=== PATIENT | female | born 1945 | race Caucasian/White ===

== ENCOUNTER → 2019-07-19 14:24 | Outpatient (CLI) | payer MEDICARE, OTHER, SELFPAY ==
--- NOTE | ~2019-07-19 | MM_ITS ---
EXAMINATION: MM screening do BI w kwabena HISTORY: Screening mammogram TECHNIQUE: Craniocaudal and mediolateral oblique 3-D tomosynthesis images were obtained and synthetic 2-D images were generated. CAD analysis was submitted and interpreted. COMPARISON: 03/17/2018, 10/30/2015 lateral digital screening mammogram examinations BREAST PARENCHYMAL COMPOSITION: There are scattered areas of fibroglandular density... FINDINGS: An approximately 6-7 mm circumscribed opacity is noted posteriorly in the mid outer right b reast. 2 similar circumscribed approximately 6-7 mm densities are noted posteriorly in the outer mid left breast. Bilateral diagnostic mammography and ultrasound are recommended. These may be intramamma ry lymph nodes but are not definitively identified on previous mammograms, possibly due to superimpos ed more prominent fibroglandular tissue in the past. Otherwise there is no evidence of suspicious mass, calcification, or architectural distortion to sugg est malignancy in either breast. There has been no other suspicious interval change. IMPRESSION: 1. Posterior mid lateral circumscribed 6 7 7 mm opacities are identified in each breast, possibly int ramammary lymph nodes. 2. Bilateral diagnostic mammography and ultrasound are recommended BI-RADS Category 0: Incomplete: Needs additional imaging evaluation. Reviewed, dictated and finalized at location A. IMPRESSION: 1. Posterior mid lateral circumscribed 6 7 7 mm opacities are identified in eac h breast, possibly intramammary lymph nodes. 2. Bilateral diagnostic mammography and ultrasound are recommended BI-RADS Category 0: Incomplete: Needs additional imaging evaluation.
--- NOTE | ~2019-07-19 | DEXA_ITS ---
Bone Density Report Name: Suzanna Jamil Age: 74 Sex: Female Ethnicity: White Date of : 1945 Indication: postmenopausal; screening for osteoporosis; height loss; Referring Provider: LUIS RODGERS Study: Bone densitometry was performed. Exam Date: July 19, 2019 Accession number: [id number] Bone Density: Region BMD T-score Z-score Classification AP Spine (L1-L4) 0.986 -0.6 1.7 Normal Femoral Neck (Left) 0.775 -0.7 1.3 Normal Total Hip (Left) 0.904 -0.3 1.4 Normal Femoral Neck (Right) 0.787 -0.6 1.4 Normal Total Hip (Right) 0.859 -0.7 1.0 Normal Total Hip Mean 0.882 -0.5 1.2 Normal World Health Organization criteria for BMD impression classify patients as: Normal (T-score at or above -1.0), Osteopenia (T-score between -1.0 and -2.5), or Osteoporosis (T-score at or below -2.5). 10-year Fracture Risk: FRAX not reported because: All T-scores for Spine Total, Hip Total, Femoral Neck at or above -1.0 Previous Exams: Region Exam Age BMD T-score BMD Change BMD Change Date g/cm2 vs Baseline vs Previous AP Spine(L1-L4) 07/19/2019 74 0.986 -0.6 -0.089* 0.018 10/30/2015 70 0.967 -0.7 -0.107* -0.064* 10/31/2011 66 1.031 -0.1 -0.044* -0.044* 10/06/2008 63 1.075 0.3 Total Hip(Left) 07/19/2019 74 0.904 -0.3 -0.062* 0.010 10/30/2015 70 0.893 -0.4 -0.073* -0.048* 10/31/2011 66 0.941 0.0 -0.025 -0.025 10/06/2008 63 0.966 0.2 Total Hip(Right) 07/19/2019 74 0.859 -0.7 -0.119* -0.039* 10/30/2015 70 0.898 -0.4 -0.080* -0.050* 10/31/2011 66 0.948 0.0 -0.030* -0.030* 10/06/2008 63 0.978 0.3 *Denotes significance at 95% confidence level, LSC for AP Spine = 0.022 g/cm2, LSC for Total Hip = 0.027 g/cm2 Clinical Information Provided by Patient: Has used the following medications: Vitamin D, MTV, off and on calcium Patient maximum height was 64.5 Menopause Age: 51 No regular weight bearing exercise Drinks caffeinated beverages Onset of menses at age 19 Number of children 1 Impression: The patient has normal bone mass. The BMD for the Total Hip(Right) decreased, changing by -0.039 since the last DXA exam. Discussion: BONE DENSITY IS ABOVE THE MINIMUM DESIRABLE LEVEL AT ALL SKELETAL SITES TESTED. This patient?s bone mineral density is above the
== END ==
PROVIDERS: Visit Provider Obstetrics & Gynecology Gynecology
DX: Z12.31 Encounter for screening mammogram for malignant neoplasm of breast (principal); Z78.0 Asymptomatic menopausal state; R92.8 Other abnormal and inconclusive findings on diagnostic imaging of breast
CPT/HCPCS: 77063; 77067; 77080

== ENCOUNTER → 2020-09-13 10:16 | Outpatient (CLI) | payer MEDICARE, OTHER, SELFPAY ==
--- NOTE | ~2020-09-13 | MM_ITS ---
EXAMINATION: MM screening [facility] BI w kwabena HISTORY: Screening TECHNIQUE: Craniocaudal and mediolateral oblique 3-D tomosynthesis images were obtained and synthetic 2-D images were generated. CAD analysis was submitted and interpreted. COMPARISON: Comparison to multiple prior studies sequentially, with oldest reviewed study dated 11/2013. BREAST PARENCHYMAL COMPOSITION: There are scattered areas of fibroglandular density. FINDINGS: There is no evidence of suspicious mass, calcification, or architectural distortion to sugg est malignancy in either breast. There has been no suspicious interval change. IMPRESSION: 1. No mammographic evidence of malignancy. 2. Recommend routine screening mammography in one year. BI-RADS Category 1: Negative Reviewed, dictated and finalized at location A.
== END ==
PROVIDERS: Visit Provider Obstetrics & Gynecology Gynecology
DX: Z12.31 Encounter for screening mammogram for malignant neoplasm of breast (principal)
CPT/HCPCS: 77063; 77067

== ENCOUNTER → 2021-12-02 15:04 | Outpatient (CLI) | payer MEDICARE, OTHER, SELFPAY ==
--- NOTE | ~2021-12-02 | US_ITS ---
EXAMINATION: US pelvic complete w TV DATE: 12/02/2021 15:42 INDICATION: Ovarian cyst. Comparison:Ultrasound dated 12/20/2013 TECHNIQUE: Multiple transabdominal and endovaginal sonographic images of the pelvis performed. FINDINGS: The uterus measures 5.4 x 2.8 x 3.9 cm. Uterus is retroverted. The endometrial complex mir ures 2 mm. The right ovary measures 1.6 x 1.3 x 1.4 cm and the left ovary measures 3 x 2.6 x 3.1 cm. There are m ultiple small cyst of the left ovary measuring up to 12 mm. There are small follicles in each ovary. Normal doppler signal in both ovaries. There is no free fluid in the pelvis. There are no abnormal masses seen on either side. IMPRESSION: 1. Multiple small cysts of the left ovary measuring up to 12 mm. Reviewed, dictated and finalized at location A.
== END ==
PROVIDERS: PCP Internal Medicine; Visit Provider Obstetrics & Gynecology Gynecology
DX: N83.202 Unspecified ovarian cyst, left side (principal)
CPT/HCPCS: 76830; 76856

== ENCOUNTER → 2022-01-23 10:57 | Outpatient (CLI) | payer MEDICARE, OTHER, SELFPAY ==
--- NOTE | ~2022-01-23 | MM_ITS ---
EXAMINATION: MM screening do BI w kwabena HISTORY: Screening TECHNIQUE: Craniocaudal and mediolateral oblique 3-D tomosynthesis images were obtained and synthetic 2-D images were generated. CAD analysis was submitted and interpreted. COMPARISON: Comparison to multiple prior studies sequentially, with oldest reviewed study dated 10/29. BREAST PARENCHYMAL COMPOSITION: There are scattered areas of fibroglandular density. FINDINGS: There is no evidence of suspicious mass, calcification, or architectural distortion to sugg est malignancy in either breast. There has been no suspicious interval change. IMPRESSION: 1. No mammographic evidence of malignancy. 2. Recommend routine screening mammography in one year. BI-RADS Category 1: Negative Reviewed, dictated and finalized at location A.
== END ==
PROVIDERS: PCP Internal Medicine; Visit Provider Obstetrics & Gynecology Gynecology
DX: Z12.31 Encounter for screening mammogram for malignant neoplasm of breast (principal)
CPT/HCPCS: 77063; 77067

== ENCOUNTER 2023-06-17 15:07 | Outpatient (CLI) | payer MEDICARE, OTHER, SELFPAY ==
--- NOTE | ~2023-06-17 | XR_ITS ---
EXAMINATION: XR chest 2V DATE: 06/17/2023 15:33 INDICATION: Acute upper respiratory infection, unspecified. TECHNIQUE: Frontal and lateral views of the chest were obtained. COMPARISON: None. FINDINGS: Calcified right lung nodules are consistent with old granulomatous disease. No pleural effu arleth or pneumothorax. The heart size is normal. IMPRESSION: 1. No acute cardiopulmonary disease. Reviewed, dictated and finalized at location E. 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
== END 2023-06-17 15:08 ==
DX: J06.9 Acute upper respiratory infection, unspecified (principal)
CPT/HCPCS: 71046

== ENCOUNTER 2023-12-02 16:03 | Outpatient (CLI) | payer MEDICARE, OTHER, SELFPAY ==
--- NOTE | ~2023-12-02 | MM_ITS ---
EXAMINATION: MM screening do BI w kwabena HISTORY: Screening TECHNIQUE: Craniocaudal and mediolateral oblique 3-D tomosynthesis images were obtained and synthetic 2-D images were generated. CAD analysis was submitted and interpreted. COMPARISON: Comparison to multiple prior studies sequentially, with oldest reviewed study dated 10/29. BREAST PARENCHYMAL COMPOSITION: Not dense: There are scattered areas of fibroglandular density. FINDINGS: There is a focal asymmetry centrally in the right breast on CC view which is high density. The left breast is stable without evidence for malignancy. IMPRESSION: 1. New focal right breast asymmetry on CC view located centrally in the middle third. 2. Additional mammographic views and possible breast ultrasound are recommended. BI-RADS Category 0: Incomplete: Needs additional imaging evaluation. Reviewed, dictated and finalized at location B. IMPRESSION: 1. New focal right breast asymmetry on CC view located centrally in the middle third. 2. Additional mammographic views and possible breast ultrasound are recommended . BI-RADS Category 0: Incomplete: Needs additional imaging evaluation.
== END 2023-12-02 16:04 ==
LOC: MICIMG 16:05
PROVIDERS: PCP Internal Medicine; Visit Provider Nurse Practitioner
DX: Z12.31 Encounter for screening mammogram for malignant neoplasm of breast (principal); R92.8 Other abnormal and inconclusive findings on diagnostic imaging of breast
CPT/HCPCS: 77063; 77067

== ENCOUNTER 2023-12-07 08:15 | Outpatient (CLI) | payer MEDICARE, OTHER, SELFPAY ==
--- NOTE | ~2023-12-07 | DEXA_ITS ---
Bone Density Report Name: YOUNG MYERS Age: 78 Sex: Female Ethnicity: White Date of : 1945 Indication: postmenopausal; screening for osteoporosis; Referring Provider: JAIDA, JAC Study: Bone densitometry was performed. Exam Date: December 07, 2023 Accession number: [id number] Bone Density: Region BMD T-score Z-score Classification AP Spine(L1-L4) 1.014 -0.3 2.2 Normal Femoral Neck (Left) 0.666 -1.6 0.5 Osteopenia Total Hip (Left) 0.803 -1.1 0.8 Osteopenia Femoral Neck (Right) 0.696 -1.4 0.8 Osteopenia Total Hip (Right) 0.815 -1.0 0.9 Normal Total Hip Mean 0.809 -1.1 0.9 Osteopenia World Health Organization criteria for BMD impression classify patients as: Normal (T-score at or above -1.0), Osteopenia (T-score between -1.0 and -2.5), or Osteoporosis (T-score at or below -2.5). 10-year Fracture Risk(1): Major Osteoporotic Fracture 13% Hip Fracture 3.0% Reported Risk Factors: [place] (), Neck BMD=0.666, BMI=26.4 (1) FRAX(R) Version 3.08. Fracture probability calculated for an untreated patient. Fracture probability may be lower if the patient has received treatment. Clinical Information Provided by Patient: Patient maximum height was 64.5 Drinks caffeinated beverages Onset of menses at age 19 Number of children 1 Impression: The patient has low bone mass, based on the Left Femoral Neck T-score. The patient has an estimated ten-year risk of hip fracture of 3% and an estimated ten-year risk of major fracture of 13%, based on the WHO FRAX algorithm. Discussion: BONE DENSITY IS LOW AT ONE OR MORE SKELETAL SITES. THE PATIENT'S BMD AND CLINICAL RISK FACTORS CONTRIBUTE TO THIS PATIENT'S INCREASED RISK OF FRACTURE. This patient's lowest T-score is low at one or more skeletal sites. It meets the World Health Organization's (WHO) criteria for ?low bone mass? (T-score between -1.0 and -2.5). The patient's 10-year risk of hip fracture as calculated by FRAX exceeds the threshold where pharmacological therapy is recommended by the National Osteoporosis Foundation (NOF). However, all treatment decisions require clinical judgment and consideration of individual patient factors, including patient preferences, comorbidities, previous drug use, risk factors not captured in the FRAX model (e.g., frailty, falls, vitamin D deficiency, increased bone turnover, interval significant decline in bone density) and possible under or overestimation of fracture risk by FRAX. The patient should follow a healthful lifestyle (good nutrition with adequate calcium and vitamin D, and appropriate weight-bearing exercise). Follow-Up: Consider a repeat BMD and Vertebral Fracture Assessment (VFA) exam in 2 years or sooner if medically necessary, to reassess this patient's status. Repo
== END 2023-12-07 08:16 | disposition home or self-care (01) ==
PROVIDERS: PCP Internal Medicine; Visit Provider Nurse Practitioner
DX: Z78.0 Asymptomatic menopausal state (principal); M85.852 Other specified disorders of bone density and structure, left thigh; M85.851 Other specified disorders of bone density and structure, right thigh
CPT/HCPCS: 77080

== ENCOUNTER 2024-01-04 08:36 | Outpatient (CLI) | payer MEDICARE, OTHER, SELFPAY ==
--- NOTE | ~2024-01-04 | MMUS_ITS ---
EXAMINATION: MM diagnostic do RT w kwabena, US breast RT complete HISTORY: Follow-up right breast asymmetry TECHNIQUE: Additional 3-D tomosynthesis images of the right breast were performed and synthetic 2-D i mages were generated. CAD analysis was submitted and interpreted. High resolution Limited right breas t ultrasound was performed. COMPARISON: Comparison to multiple prior studies sequentially, with oldest reviewed study dated 10/29. BREAST PARENCHYMAL COMPOSITION: Not dense: There are scattered areas of fibroglandular density. FINDINGS: MAMMOGRAPHIC FINDINGS: Asymmetries in the right breast are less apparent with spot compression and mediolateral views. No di screte masses or architectural distortion. ULTRASOUND: Complete US of all 4 quadrants of the right breast/s and retroareolar region was reviewed. At 12:00, 5 cm from the nipple there is an oval hypoechoic 3 mm mass with circumscribed margins, likely benign. At 3:00, 5 cm from the nipple there is an oval slightly irregular shaped hypoechoic mass with hetero geneous internal echotexture measuring 7 mm without posterior features or internal vascularity. At 8: 00, 3 cm from the nipple, there is an irregular shaped hypoechoic mass with antiparallel configuratio n. No significant posterior features or internal vascularity. This mass measures approximately 9 x 7 mm. At 9:00, 6 cm from the nipple there is an oval hypoechoic 5 mm mass with posterior enhancement, n o internal vascularity, likely benign. IMPRESSION: 1. Masses at 3:00, 5 cm from the nipple measuring 7 mm and 8:00, 3 cm from the nipple measuring up to 9 mm. Ultrasound-guided biopsies recommended. 2. Probable benign masses of the right breast at 12:00, 5 cm from the nipple measuring 3 mm and 9:00, 6 cm from the nipple measuring 5 mm. Follow-up ultrasound in 6 months recommended. BI-RADS category 4, suspicious findings. Reviewed, dictated and finalized at location B. IMPRESSION: 1. Masses at 3:00, 5 cm from the nipple measuring 7 mm and 8:00, 3 cm from the nipple measuring up to 9 mm. Ultrasound-guided biopsies recommended. 2. Probable benign masses of the right breast at 12:00, 5 cm from the nipple me asuring 3 mm and 9:00, 6 cm from the nipple measuring 5 mm. Follow-up ultrasoun d in 6 months recommended. BI-RADS category 4, suspicious findings.
== END 2024-01-04 08:37 | disposition home or self-care (01) ==
LOC: MICIMG 08:37
PROVIDERS: PCP Obstetrics & Gynecology Gynecology; Visit Provider Obstetrics & Gynecology Gynecology
DX: R92.8 Other abnormal and inconclusive findings on diagnostic imaging of breast (principal)
CPT/HCPCS: 76641; 77061; 77065; G0279

== ENCOUNTER 2024-02-04 07:44 | Outpatient (CLI) | payer MEDICARE, OTHER, SELFPAY ==
--- NOTE | ~2024-02-04 | US_ITS ---
US breast RT limited 02/04/2024 13:18 Indication: Right breast mass seen on prior examination. Procedure: Limited ultrasound of the right breast Comparison: 01/04/2024 Findings: Right breast masses are identified by ultrasound. Patient took current dose of aspirin prio r to the study. Biopsy canceled and will be rescheduled following stoppage of anticoagulant. Reviewed, dictated and finalized at location B.
== END 2024-02-04 07:45 | disposition home or self-care (01) ==
PROVIDERS: PCP Obstetrics & Gynecology Gynecology; Visit Provider Surgery
DX: R92.8 Other abnormal and inconclusive findings on diagnostic imaging of breast (principal)
CPT/HCPCS: 76642

== ENCOUNTER 2024-02-11 08:34 | Outpatient (CLI) | payer MEDICARE, OTHER, SELFPAY ==
--- NOTE | ~2024-02-11 | MMUS_ITS ---
EXAMINATION: US breast biopsy RT w image, MM post biopsy diagnostic RT, US breast bx add lesion RT DATE: 02/11/2024 10:46 INDICATION: Right breast mass at 3:00. Right breast mass at 8:00. TECHNIQUE: The procedure including the risks, benefits, and alternatives was discussed with the patie nt. Risks discussed included bleeding and infection. The patient understood the risks and agreed to p roceed. The skin of the right breast was prepped and draped in usual sterile fashion at the 8:00 posi tion. Anesthetic was administered with 1% lidocaine at the skin and 1% lidocaine with epinephrine in the deeper tissue. A 10-gauge vacuum-assisted core biopsy needle was then used to obtain 3 core bio psy specimens under continuous sonographic guidance. A Mammotome Hydromark butterfly marker was place d under sonographic guidance The entry site was cleaned and dressed. There were no immediate complic ations. The skin of the right breast was prepped and draped in usual sterile fashion at the 3:00 position. A nesthetic was administered with 1% lidocaine at the skin and 1% lidocaine with epinephrine in the aleisha per tissue. A 10-gauge vacuum-assisted core biopsy needle was then used to obtain 3 core biopsy spec imens under continuous sonographic guidance. A Mammotome Hydromark open coil marker was placed under sonographic guidance The entry site was cleaned and dressed. A two-view mammogram was obtained to document marker placement. FINDINGS: Ultrasound images demonstrate the needle in the mass at the 8:00 position. Ultrasound image s demonstrate the needle in the mass at the 3:00 position. Breast composition: There are scattered areas of fibroglandular density. Mammogram: Biopsy changes and a tissue marker are noted at the 8:00 position. Biopsy changes and a ti ssue marker are noted at the 3:00 position. IMPRESSION: 1. Successful ultrasound-guided vacuum-assisted biopsy of two right breast masses with post procedure mammogram for marker placement. Reviewed, dictated and finalized at location B. IMPRESSION: 1. Successful ultrasound-guided vacuum-assisted biopsy of two right breast mass es with post procedure mammogram for marker placement. IMPRESSION: 1. Successful ultrasound-guided vacuum-assisted biopsy of two right breast mass es with post procedure mammogram for marker placement.
== END 2024-02-11 08:35 | disposition home or self-care (01) ==
PROVIDERS: PCP Obstetrics & Gynecology Gynecology; Visit Provider Physician Assistant Surgical
DX: N63.15 Unspecified lump in the right breast, overlapping quadrants (principal)
CPT/HCPCS: 19083; 19084; 77065; 88305; A4648

== ENCOUNTER 2024-08-03 12:59 | Outpatient (CLI) | payer MEDICARE, OTHER, SELFPAY ==
--- NOTE | ~2024-08-03 | MM_ITS ---
EXAMINATION: MM diagnostic do RT w kwabena HISTORY: Follow-up benign right breast biopsies TECHNIQUE: Additional 3-D tomosynthesis images of the right breast were performed and synthetic 2-D i mages were generated. CAD analysis was submitted and interpreted. COMPARISON: Comparison to multiple prior studies sequentially, with oldest reviewed study dated 10/2019. BREAST PARENCHYMAL COMPOSITION: Automated exposure control and iterative reconstruction technique wer e employed. FINDINGS: There are tissue markers in the right breast from previous benign biopsies involving the lo wer outer quadrant of the right breast, anterior third and lower inner quadrant of the right breast, middle third. There are no new masses, calcifications or architectural distortion in the right breast to suggest malignancy. IMPRESSION: 1. No mammographic evidence for malignancy in the right breast. 2. Routine yearly screening mammogram and regular clinical breast examination are recommended. BI-RADS Category 2: Benign finding(s). Reviewed, dictated and finalized at location A. IMPRESSION: 1. No mammographic evidence for malignancy in the right breast. 2. Routine yearly screening mammogram and regular clinical breast examination a re recommended. BI-RADS Category 2: Benign finding(s).
--- OUTSIDE RECORDS SUMMARY | 2024-08-03 14:31 | XMS_ITS | Encounter Summary ---
Author Organization [facility] Address [address] [place] [id number] Care Team Providers Care High School Teacher Name Role Phone Sade Hartmann DO Primary Care Provider Encounter Details Date Type Department Care Team (Late st Contact Info) Description 09/18/2018 Abstract [facility] CONVERSION [id number] [address] [place], [place] [id number] , Generic Conversion, Social History Tobacco Use Types Packs/Day Years Used Date Smoking Tobacco: Never Assessed Comments Unknown Sex and Gender Information Value Date Recorded Sex Assigned at Female 05/03/2024 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
--- OUTSIDE RECORDS SUMMARY | 2024-08-03 14:31 | XMS_ITS | Clinical Summary ---
Author Organization [facility] Address [facility] [place] [address] Care Team Providers Care C Programmer Name Role Phone ButteSade Cuca [place] Primary Care Provider [phone] Allergies Active Allergy Reactions Criticality Noted Date Comments Ciprofloxacin Unknown,Other (see comment) 11/26/2010 Reported heel pain/tendon pain Medications aspirin EC (ASPIRIN EC) 81 MG tablet Take 1 tablet (81 mg total) by mouth daily. Active VITAMIN D, CHOLECALCIFEROL , OR Take 1,000 Int'l Units by mouth. Active LORazepam 0.5 MG tablet Take 1 tablet (0.5 mg total) by mouth every 6 (six) hours as needed for Anxiety. Active multi vitamin/mineral s tablet Take 1 tablet by mouth daily. Active Casanthranol-Do cusate Sodium (LAXATIVE-STOOL SOFTNER OR) Active cyclobenzaprine 10 MG tablet Take 1 tablet (10 mg total) by mouth 3 (three) times daily as needed for Muscle Spasms. 20 tablet 06/23/2021 Active amLODIPine (NORVASC) 2.5 MG tablet Take 1 tablet (2.5 mg total) by mouth daily. 09/29/2022 Active omeprazole (PRILOSEC) 40 MG capsule Take 1 capsule (40 mg total) by mouth daily. 08/14/2023 Active rosuvastatin (CRESTOR) 20 MG tablet Take 1 tablet (20 mg total) by mouth daily. 09/25/2022 Active alendronate (FOSAMAX) 70 MG tablet Take 1 tablet (70 mg total) by mouth once a week. Active amoxicillin-cla vulanate (AUGMENTIN) 875-125 MG tablet Take by mouth every 12 (twelve) hours. 05/23/2024 Active Active Problems Problem Noted Date Diagnosed Date Lumbar radiculopathy 05/03/2024 Pain of left shoulder region 07/15/2021 Gastroesophageal reflux dise ase, unspecified whether esophagitis present 10/05/2020 Overview (10/05/2020): Added automatically from request for surgery [id number] Screening for colon cancer 10/05/2020 Overview (10/05/2020): Added automatically from request for surgery [id number] Regurgitation of food 10/05/2020 Overview (10/05/2020): Added automatically from request for surgery [id number] Encounters Date Type Department Care Team Description 05/30/2024 3:00 PM BISCUIT PACKER - 05/30/2024 3:20 PM BISCUIT PACKER Surgery [facility] [place] [address] [id number] Yolanda Gonsalves MD INJECTION EPIDURAL [id number] 05/30/2024 1:16 PM BISCUIT PACKER - 05/30/2024 3:35 PM BISCUIT PACKER Hospital Encounter [facility] [place] [address] [id number] Yolanda Gonsalves MD Discharge Disposition: Home or Self Care (Routine Discharge) 05/30/2024 Travel from Last 3 Months Immunizations Immunization Administration Dates Next Due Arexvy Respiratory Syncytial Virus (RSV, adjuvanted) 0.5 mL, PF 02/11/2023 BEYFORTUS RSV, mAb, nirsevim ab-alip, 1 mL, to 24 months 02/11/2023 Fluzone High Dose (IIV, triv alent, 0.5mL) 01/13/2024 Fluzone High Dose - >Age 65 (Prefilled Syringe) 01/01/2023,01/01/2023,01/01/2022,2020,12/23/2019 Influenza (Generic) 02/16/2019,03/13/2015 Influenza Adult (Generic) 12/23/2019,03/08/2014, 03/01/2013 MODERNA COVID-19 (12+) MRNA, LNP-S, PF, 100 MCG/ 0.5 ML DOSE 07/31/2020,07/03/2020 Pneumococcal (Prevnar 13) 03/13/2015 Shingrix 08/12/2023,02/11/2023 Tdap (Boostrix) 10/11/2021 Zoster (Zostavax) [id number] Unt/0.65Ml 05/09/2016 Family History Medical History Relation Comments Breast Cancer Maternal Aunt Breast Cancer Other Relation Status Comments Maternal Aunt Other Alive Social History Tobacco Use Types Packs/Day Years Used Date Smoking Tobacco: Never Smokeless Tobacco: Never Tobacco Cessation:Counseling Given: No Alcohol Use Standard Drinks/Week Comments Not Currently 0 (1 standard drink = 0.6 oz pur e alcohol) PHQ-2 Answer Date Recorded Patient Health Questionnaire-2 Score 0 04/04/2024 Comments No Sex and Gender Information Value Date Recorded Sex Assigned at Female 05/03/2024 2:07 PM BISCUIT PACKER Legal Sex Female 7:36 PM CDT Gender Identity Not on file Sexual Orientation Not on file Last Filed Vital Signs Vital Sign Reading Time Taken Comments Blood Pressure 201/104 05/30/2024 3:22 PM BISCUIT PACKER Pulse 84 05/30/2024 3:22 PM BISCUIT PACKER Temperature 36.6 C (97.8 F) 05/30/2024 2:56 PM BISCUIT PACKER Respiratory Rate 18 05/30/2024 3:22 PM BISCUIT PACKER Oxygen Saturation 100% 05/30/2024 3:22 PM BISCUIT PACKER Inhaled Oxygen Concentration - - Weight 70.8 kg (156 lb) 05/30/2024 2:56 PM BISCUIT PACKER Height 160 cm (5' 3 ) 05/30/2024 2:56 PM BISCUIT PACKER Body Mass Index 27.63 05/30/2024 2:56 PM BISCUIT PACKER Plan of Treatment Health Maintenance Due Date Last Done Comments Hepatitis C 1963 Annual Medicare Wellness Visit 2011 Dexa Scan (General) 2011 Pneumococcal Vaccine: 50+ Years (2 of 2 - PPSV23) 03/13/2016 03/13/2015 COVID-19 Vaccine (2023-2 5 season) 2023 07/31/2020, 07/03/2020 PHQ-2 (Physician Ward) 04/13/2024 04/04/2024 DTaP, Tdap and Td Vaccines ( 2 - Td or Tdap) 10/12/2031 10/11/2021 Colorectal Cancer Screening Colonoscopy (10 Years) Discontinued 10/26/2020 RSV Immunization or 60+ Years Completed 02/11/2023 RSV Immunizations Under 20 Months Aged Out 02/11/2023 No longer eligible based on patient's age to complete this topic Zoster Vaccines Completed 08/12/2023, 02/11/2023, 05/09/2016 Meningococcal B Vaccine Aged Out No l onger eligible based on patient's age to complete this topic Meningococcal Vaccine Aged Out No maycol walter eligible based on patient's age to complete this topic Medical Devices Implanted Type Area Musical Instrument Mechanic Device Identifier Shelf Expiration Date Model / Serial / Lot Stapes Implant (Unknown Model) Ear Left: Ear Description:IMPLANTED 1979- need model number of implant (unsafe implants were made in 1986 [facility]). NO MRI without model number per Dr. Story Procedures Procedure Name Priority Date/Time Associated Diagnosis Comments NJX AA&/STRD TFRML EPI LUMBAR/SACRAL 1 LEVEL 05/30/2024 3:12 PM BISCUIT PACKER Lumbar radiculopathy XR PAIN CLINIC C-ARM Today 05/30/2024 1:19 PM BISCUIT PACKER from Last 3 Months Results * XR PAIN CLINIC C-ARM (05/30/2024 1:19 PM BISCUIT PACKER) Narrative Radiology, Technologist - 05/30/2024 1:19 PM BISCUIT PACKER This report does not contain a radiologist's interpretation. Please review associated procedure and/or operative report. Yolanda Gonsalves MD GENERAL IMAGING Final Result from Last 3 Months Insurance [employer] MEDICARE [facility] Care Teams C Programmer Relationship Specialty Start Date End Date Sade Hartmann DO [facility] [place] [phone] PCP - General INTERNAL MEDICINE 09/07/19
== END 2024-08-03 13:00 | disposition home or self-care (01) ==
LOC: ANHIMG 13:00
PROVIDERS: PCP Family Medicine; Visit Provider Surgery
DX: N63.15 Unspecified lump in the right breast, overlapping quadrants (principal); N63.13 Unspecified lump in the right breast, lower outer quadrant; R92.8 Other abnormal and inconclusive findings on diagnostic imaging of breast
CPT/HCPCS: 77061; 77065; G0279

== ENCOUNTER 2024-12-26 12:56 | Outpatient (CLI) | payer MEDICARE, OTHER, SELFPAY ==
--- NOTE | ~2024-12-26 | MM_ITS ---
EXAMINATION: MM screening do BI w kwabena HISTORY: Screening TECHNIQUE: Craniocaudal and mediolateral oblique 3-D tomosynthesis images were obtained and synthetic 2-D images were generated. CAD analysis was submitted and interpreted. COMPARISON: 01/23/2022 BREAST PARENCHYMAL COMPOSITION: There are scattered areas of fibroglandular density. FINDINGS: There is no evidence of suspicious mass, calcification, or architectural distortion to suggest malignancy. There has been no suspicious interval change. IMPRESSION: 1. No mammographic evidence of malignancy. Recommend routine screening mammography in one year. BI-RADS Category 2: Benign finding(s) Reviewed, dictated and finalized at location Q. IMPRESSION: 1. No mammographic evidence of malignancy. Recommend routine screening mammogra phy in one year. BI-RADS Category 2: Benign finding(s)
== END 2024-12-26 12:57 | disposition home or self-care (01) ==
LOC: ANHFOHIMG 12:58
PROVIDERS: Visit Provider Surgery
DX: Z12.31 Encounter for screening mammogram for malignant neoplasm of breast (principal)
CPT/HCPCS: 77063; 77067